=== PATIENT | female | born 1965 | race African-American/Black ===

== ENCOUNTER 2016-10-05 05:31 | Emergency (ER) | payer OTHER, MEDICAID ==
[~2016-10-05] VITALS: Ht 154.9 cm; Wt 72.6 kg
[~2016-10-05 05:31] MED LIST: ASPI81CH43 PO
[2016-10-05 06:01] LABS: Basophils # (auto) 0 uL; Eosinophils # (auto) 0.3 uL; Hematocrit 38.8 % (36.0-46.0); Lymphocytes # (auto) 1.7 uL; Lymphocytes % (auto) 43.9 % (10.0-50.0); Mean Corpuscular Hemoglobin 31.6 pg (28.0-32.0); Mean Corpuscular Hgb Conc. 33.6 g/dL (32.0-36.0); Mean Corpuscular Volume 93.9 fL (80.0-100.0); Mean Platelet Volume 8.5 fL (7.4-10.4); Monocytes # (auto) 0.2 uL; Monocytes % (auto) 5.8 % (0.0-12.0); Neutrophils # (auto) 1.5 uL; Neutrophils % (auto) 40.3 % (37.0-80.0); Platelet Count (auto) 328 10^3/uL (140-450); Red Cell Distribution Width 14.3 % (11.6-16.0); White Blood Cell 3.8 10^3/uL (4.4-10.8)
[2016-10-05 06:25] LABS: Albumin 3.7 g/dL (3.4-5.0); Alkaline Phosphatase 64 U/L (45-117); Anion Gap 11 (5-15); Aspartate Aminotransferase 19 U/L (15-37); Bilirubin, Total 0.4 mg/dL (0.2-1.0); Blood Urea Nitrogen 15 mg/dL (7-18); Calcium 9.1 mg/dL (8.5-10.1); Carbon Dioxide 26 mmol/L (21-32); Chloride 107 mmol/L (98-107); GFR African American 65 mL/min; GFR Non-African American 54 mL/min; Glucose 91 mg/dL (74-106); Potassium 4.2 mmol/L (3.5-5.1); Sodium 144 mmol/L (136-145); Total Protein 7.5 g/dL (6.4-8.2)
[2016-10-05] MEDS ORDERED: SODIUM CHLORIDE 0.9% 1,000 ML IV ONE (08:44)
[2016-10-05] MEDS ORDERED: METOCLOPRAMIDE HCL 5MG/ml INJ 2ml VIAL IV ONE (08:45)
[2016-10-05] MEDS ORDERED: NALBUPHINE HCL 10 MG/1ml INJECTION IV ONE (08:45)
[2016-10-05] MEDS ORDERED: METOCLOPRAMIDE HCL 5MG/ml INJ 2ml VIAL ONE (09:01)
[2016-10-05 09:05] LABS: Urine Bilirubin Negative (Negative); Urine Blood Negative /uL (Negative); Urine Color Yellow (Yellow); Urine Glucose Normal (Normal); Urine Ketone Negative (Negative); Urine Nitrite Negative (Negative); Urine RBC 2 /hpf (0 - 4); Urine Squamous Epithelial Cell FEW /hpf (<5); Urine Urobilinogen Normal (Negative)
[2016-10-05 10:25] VITALS: BP 148/74
== END 2016-10-05 12:05 | disposition home or self-care (01) ==
LOC: ER 05:37
DX: R07.89 Other chest pain (principal); I10 Essential (primary) hypertension; Z98.51 Tubal ligation status; Z98.890 Other specified postprocedural states; Z88.8 Allergy status to other drugs, medicaments and biological substances
CPT/HCPCS: 36415; 71020; 80053; 81001; 81025; 83735; 84484; 85025; 93005; 96361; 96374; 96375; 99285; J2300; J2765; J7030

== ENCOUNTER 2017-11-10 05:16 | Emergency (ER) | payer OTHER ==
[~2017-11-10] VITALS: Ht 154.9 cm; Wt 77.6 kg
[2017-11-10 06:25] LABS: Basophils # (auto) 0.1 uL; Basophils % (auto) 2.7 % (0.0-2.0); Eosinophils # (auto) 0.4 uL; Eosinophils % (auto) 10.5 % (0.0-7.0); Hematocrit 39.4 % (36.0-46.0); Hemoglobin 13.2 g/dL (12.2-16.2); Lymphocytes # (auto) 2.1 uL; Lymphocytes % (auto) 50.6 % (10.0-50.0); Mean Corpuscular Hemoglobin 31.5 pg (28.0-32.0); Mean Corpuscular Hgb Conc. 33.5 g/dL (32.0-36.0); Monocytes # (auto) 0.3 uL; Monocytes % (auto) 6.6 % (0.0-12.0); Neutrophils # (auto) 1.2 uL; Neutrophils % (auto) 29.6 % (37.0-80.0); Nucleated Red Blood Cells % 0.2 %; Platelet Count (auto) 307 10^3/uL (140-450); Red Blood Cells 4.19 10^6/uL (4.0-5.20); Red Cell Distribution Width 13.5 % (11.8-14.3); White Blood Cell 4.2 10^3/uL (4.4-10.8)
[2017-11-10 06:44] LABS: Alanine Aminotransferase 27 U/L (13-56); Albumin 3.7 g/dL (3.4-5.0); Anion Gap 8 (5-15); Aspartate Aminotransferase 19 U/L (15-37); BUN/Creatinine Ratio 12.8; Blood Urea Nitrogen 14 mg/dL (7-18); Calcium 9.2 mg/dL (8.5-10.1); Carbon Dioxide 27 mmol/L (21-32); Chloride 108 mmol/L (98-107); GFR African American 68 mL/min; GFR Non-African American 56 mL/min; Glucose 105 mg/dL (74-106); Magnesium 2.2 mg/dL (1.6-2.6); Potassium 4.8 mmol/L (3.5-5.1); Sodium 143 mmol/L (136-145)
[2017-11-10 06:48] LABS: Urine Bacteria FEW /hpf (None Seen); Urine Blood Negative /uL (Negative); Urine Mucus FEW (None Seen); Urine Specific Gravity 1.024 (1.001-1.035); Urine WBC 31 /hpf (0 - 5)
[2017-11-10 06:50] LABS: Alkaline Phosphatase 83 U/L (45-117); Bilirubin, Total 0.3 mg/dL (0.2-1.0); Total Protein 7.7 g/dL (6.4-8.2)
[2017-11-10] MEDS ORDERED: KETOROLAC TROMETH 60MG/2ML VIAL IM ONE (09:45)
[2017-11-10 10:21] VITALS: BP 128/82
== END 2017-11-10 10:24 | disposition home or self-care (01) ==
LOC: ER 05:18
DX: N39.0 Urinary tract infection, site not specified (principal); M79.1 Myalgia; I10 Essential (primary) hypertension; Z88.4 Allergy status to anesthetic agent; Z79.82 Long term (current) use of aspirin; Z83.3 Family history of diabetes mellitus
CPT/HCPCS: 36415; 71045; 80053; 81001; 83735; 84443; 84484; 85025; 93005; 96372; 99285; J1885

== ENCOUNTER 2018-09-09 04:08 | Emergency (ER) | payer OTHER, MEDICAID ==
[~2018-09-09] VITALS: Ht 154.9 cm; Wt 77.1 kg
[2018-09-09 05:31] LABS: Urine Bacteria NONE SEEN /hpf (None Seen); Urine Blood Negative /uL (Negative); Urine WBC 29 /hpf (0 - 5)
[2018-09-09 06:03] LABS: Basophils # (auto) 0.1 uL; Basophils % (auto) 1.3 % (0.0-2.0); Eosinophils # (auto) 0.4 uL; Eosinophils % (auto) 7.4 % (0.0-7.0); Hematocrit 38.9 % (36.0-46.0); Hemoglobin 12.9 g/dL (12.2-16.2); Lymphocytes # (auto) 2.2 uL; Lymphocytes % (auto) 47.3 % (10.0-50.0); Mean Corpuscular Hemoglobin 31.2 pg (28.0-32.0); Mean Corpuscular Hgb Conc. 33.3 g/dL (32.0-36.0); Mean Corpuscular Volume 93.8 fL (80.0-100.0); Monocytes # (auto) 0.3 uL; Neutrophils # (auto) 1.7 uL; Nucleated Red Blood Cells % 0.1 %; Platelet Count (auto) 311 10^3/uL (140-450); Red Blood Cells 4.14 10^6/uL (4.0-5.20); Red Cell Distribution Width 13.7 % (11.8-14.3); White Blood Cell 4.7 10^3/uL (4.4-10.8)
[2018-09-09 06:18] VITALS: BP 144/78
[2018-09-09 06:20] LABS: Chloride 112 mmol/L (98-107); Potassium 4.3 mmol/L (3.5-5.1); Sodium 141 mmol/L (136-145)
[2018-09-09 06:33] LABS: Alanine Aminotransferase 26 U/L (13-56); Albumin 3.6 g/dL (3.4-5.0); Alkaline Phosphatase 78 U/L (45-117); Amylase 151 U/L (25-115); Anion Gap 5 (5-15); Aspartate Aminotransferase 16 U/L (15-37); BUN/Creatinine Ratio 15.6; Bilirubin, Total 0.3 mg/dL (0.2-1.0); Blood Urea Nitrogen 15 mg/dL (7-18); Carbon Dioxide 24 mmol/L (21-32); GFR African American 79 mL/min; GFR Non-African American 65 mL/min; Glucose 99 mg/dL (74-106); Lipase 74 U/L (73-393); Magnesium 2.3 mg/dL (1.6-2.6); Total Protein 7.6 g/dL (6.4-8.2)
== END 2018-09-09 07:47 | disposition home or self-care (01) ==
LOC: ER 04:08
DX: N39.0 Urinary tract infection, site not specified (principal); R51 Headache; I10 Essential (primary) hypertension; Z88.6 Allergy status to analgesic agent; Z79.82 Long term (current) use of aspirin; Z98.51 Tubal ligation status
CPT/HCPCS: 36415; 71046; 74176; 80053; 81001; 82150; 83690; 83735; 84443; 84484; 85025; 93005

== ENCOUNTER 2019-03-29 07:49 | Inpatient (IN) | payer MEDICAID, OTHER ==
[~2019-03-29] VITALS: Ht 154.9 cm; Wt 85.0 kg
[2019-03-29 09:12] LABS: Basophils # (auto) 0.1 uL; Basophils % (auto) 1.5 % (0.0-2.0); Eosinophils # (auto) 0.3 uL; Eosinophils % (auto) 7.8 % (0.0-7.0); Hematocrit 41.4 % (36.0-46.0); Lymphocytes # (auto) 1.8 uL; Lymphocytes % (auto) 45.8 % (10.0-50.0); Mean Corpuscular Hemoglobin 31.7 pg (28.0-32.0); Mean Corpuscular Hgb Conc. 33.8 g/dL (32.0-36.0); Mean Corpuscular Volume 93.9 fL (80.0-100.0); Monocytes # (auto) 0.2 uL; Monocytes % (auto) 6.2 % (0.0-12.0); Neutrophils # (auto) 1.5 uL; Neutrophils % (auto) 38.7 % (37.0-80.0); Nucleated Red Blood Cells % 0.2 %; Platelet Count (auto) 303 10^3/uL (140-450); Red Blood Cells 4.41 10^6/uL (4.0-5.20); Red Cell Distribution Width 13.6 % (11.8-14.3); White Blood Cell 3.9 10^3/uL (4.4-10.8)
[2019-03-29 09:20] LABS: Urine Bacteria NONE SEEN /hpf (None Seen); Urine Blood Negative /uL (Negative); Urine WBC 1 /hpf (0 - 5)
[2019-03-29 09:31] LABS: Albumin 3.8 g/dL (3.4-5.0); Anion Gap 6 (5-15); Calcium 9.3 mg/dL (8.5-10.1); Carbon Dioxide 27 mmol/L (21-32); Chloride 106 mmol/L (98-107); Glucose 87 mg/dL (74-106); Potassium 4.1 mmol/L (3.5-5.1); Sodium 139 mmol/L (136-145)
[2019-03-29 09:40] LABS: Alanine Aminotransferase 40 U/L (13-56); Alkaline Phosphatase 78 U/L (45-117); Aspartate Aminotransferase 24 U/L (15-37); BUN/Creatinine Ratio 13.9; Bilirubin, Total 0.5 mg/dL (0.2-1.0); Blood Urea Nitrogen 15 mg/dL (7-18); GFR African American 69 mL/min; GFR Non-African American 57 mL/min; Total Protein 7.9 g/dL (6.4-8.2)
[2019-03-29] MEDS ORDERED: NITROGLYCERIN 0.4 MG SL TAB SL PRN ×2 (12:30)
[2019-03-29] MEDS ORDERED: ONDANSETRON HCL 4 MG/2 ML VIAL IV PRN (12:30)
[2019-03-29] MEDS ORDERED: ZOLPIDEM TARTRATE 5 MG TAB PO PRN (12:30)
[2019-03-29] MEDS ORDERED: LORazepam 0.5 MG TAB PO PRN (12:30)
[2019-03-29] MEDS ORDERED: KETOROLAC TROMETH 30 MG/ML 1ML VIAL IV PRN (12:30)
[2019-03-29] MEDS ORDERED: CLOPIDOGREL 300 MG TAB PO ONE (12:30)
[2019-03-29] MEDS ORDERED: ALUM & MAG HYDROX-SIMETH LIQ(MAALOX) 30 ML PO PRN (12:30)
[2019-03-29] MEDS ORDERED: MORPHINE SULF INJ 2 MG/ML SYRINGE 1ML IV PRN (12:30)
[2019-03-29] MEDS ORDERED: MORPHINE SULFATE 4 MG/ML SYR/VIAL IV PRN (12:30)
[2019-03-29] MEDS ORDERED: IOHEXOL 350 MG/ML 100ML IJ ONE (13:14)
--- NOTE | 2019-03-29 14:20 | NUR ---
Telemetry admit from ER GERONIMO MCWILLIAMS admitted to Telemetry unit after SBAR received. Patient oriented to Felicity crump RN, unit, room, bed, and unit policies regarding patient care and visiting hours. Patient now on continuous telemetry monitoring, tele box #[id number] and telemetry reading on arrival to unit is SB 40's. Patient weighed by bed scale and encouraged to call if they need something. All questions and concerns addressed, patient verbalized understanding. Instructed patient on POC, fall precautions and to call for assistance as needed. patient verbalized understanding. Fall precautions in place with bed in lowest locked position, x2 side rails up and call light within reach. Will continue to monitor q1hr & PRN.
--- NOTE | 2019-03-29 14:33 | NUR ---
HR SB 38 bpm noted on telemetry Patient is asymptomatic. Patient stated "yeah, I've been told before that my heart rate goes low. Then it comes back up. I feel fine right now." Patient sitting in bed with even and unlabored respirations, no distress noted. Patient denies SOB and/or CP. Call light within reach. Dr. Armstrong aware of bradycardia.
--- NOTE | 2019-03-29 15:02 | NUR ---
Spoke with surplus property disposal agent - Dr. Armstrong RE: bradycardia MD aware of bradycardia. Patient is asymptomatic. Ordered to continue to monitor and notify MD if patient becomes symptomatic and/or HR sustains in the 30's for 5-10 minutes. Orders received and read back to verify.
--- NOTE | 2019-03-29 15:11 | NUR ---
cytogenetics technologist at bedside
[2019-03-29] MEDS ORDERED: AML5T PO (15:23)
[2019-03-29] MEDS ORDERED: LOSA-39 PO (15:23)
[2019-03-29] MEDS ORDERED: HYDR12.56 PO (15:23)
[2019-03-29] MEDS ORDERED: hydrALAZINE HCL 25 MG TAB PO PRN (16:15)
[2019-03-29 16:54] VITALS: BP 163/94
--- NOTE | 2019-03-29 19:10 | NUR ---
Closing note - care endorsed to KESHAWN Otero Patient resting in bed with eyes closed, respirations even and unlabored, no distress noted. Fall precautions in place with call light within reach. Further care endorsed to KESHAWN Otero.
--- NOTE | 2019-03-29 19:45 | NUR ---
OPENING NOTE REPORT RECEIVED FROM DAY SHIFT RN. PATIENT IS SLEEPING AT THIS TIME. NO S/S OF DISTRESS NOTED. WILL COME BACK AT LATER TIME TO DO ASSESSMENT. ALL PERSONAL BELONGINGS WITHIN REACH. CALL LIGHT WITHIN REACH.
[2019-03-29 22:00] VITALS: BP 132/72
[2019-03-30 05:37] VITALS: BP 144/71
[2019-03-30 05:49] LABS: Basophils # (auto) 0.1 uL; Basophils % (auto) 1.2 % (0.0-2.0); Eosinophils # (auto) 0.4 uL; Eosinophils % (auto) 8.6 % (0.0-7.0); Hematocrit 41.7 % (36.0-46.0); Lymphocytes # (auto) 1.9 uL; Lymphocytes % (auto) 44.6 % (10.0-50.0); Mean Corpuscular Hemoglobin 31.5 pg (28.0-32.0); Mean Corpuscular Hgb Conc. 33.6 g/dL (32.0-36.0); Mean Corpuscular Volume 93.7 fL (80.0-100.0); Monocytes # (auto) 0.3 uL; Monocytes % (auto) 6.4 % (0.0-12.0); Neutrophils # (auto) 1.7 uL; Neutrophils % (auto) 39.2 % (37.0-80.0); Platelet Count (auto) 295 10^3/uL (140-450); Red Blood Cells 4.44 10^6/uL (4.0-5.20); Red Cell Distribution Width 13.3 % (11.8-14.3); White Blood Cell 4.3 10^3/uL (4.4-10.8)
[2019-03-30 06:11] LABS: Albumin 3.7 g/dL (3.4-5.0); BUN/Creatinine Ratio 16.1; Calcium 9.3 mg/dL (8.5-10.1); Cholesterol 257 mg/dL (< 200); Magnesium 2.2 mg/dL (1.6-2.6); Triglycerides 112 mg/dL (< 150)
[2019-03-30 06:13] LABS: HDL Cholesterol 68 mg/dL (40-59); LDL Cholesterol 174 mg/dL (< 100)
[2019-03-30 06:14] LABS: Bilirubin, Total 0.5 mg/dL (0.2-1.0); Total Protein 7.9 g/dL (6.4-8.2)
[2019-03-30 06:22] LABS: Phosphorus 4.1 mg/dL (2.5-4.90)
[2019-03-30 06:34] LABS: INR 0.93 (0.9-1.15); Partial Thromboplastin Time 26.5 sec (23.64-32.05)
--- NOTE | 2019-03-30 06:44 | NUR ---
CLOSING PATIENT IS AWAKE, WATCHING TV IN BED. NO S/S OF DISTRESS. PATIENT BATOOL ON MONITOR THROUGHOUT NIGHT IS LOW 40'S, ASYMPTOMATIC. PATIENT HEART RATES GOES INTO THE 70'S WHILE AWAKE AND MOVING. NO INCIDENTS DURING NIGHT. CALL LIGHT WITHIN REACH. WILL ENDORSE CARE TO AM SHIFT RN.
--- NOTE | 2019-03-30 07:34 | NUR ---
Opening Shift Note Assumed care of patient, awake and alert. No S/S of distress/SOB. PT denies having any pain at this time. Bed in lowest and locked position with side rails up x2 and call light in reach. Instructed on POC and to call for assist PRN, will continue to monitor for changes Q1hr and PRN.
[2019-03-30 09:00] VITALS: BP 134/82
[2019-03-30] MEDS ORDERED: ASPirin 81 mg TAB PO SCH (10:00)
[2019-03-30] MEDS ORDERED: amLODIPine BESYLATE 5 MG TAB PO SCH (10:00)
[2019-03-30] MEDS ORDERED: DOCUSATE SOD 100 MG CAP PO SCH (10:00)
[2019-03-30 13:00] VITALS: BP 136/89
[2019-03-30 16:16] VITALS: BP 136/89
[2019-03-30 17:00] VITALS: BP 132/83
--- NOTE | 2019-03-30 18:00 | NUR ---
Discharge instructions given as ordered. Encourage to follow up with PMD as instructed. All questions and concerns addressed. Patient verbalized understanding. Medication reconciliation form completed and copy given to patient. No Home medications held in Pharmacy. No needed vaccines. IV removed with catheter intact, pressure dressing applied. Telemetry unit returned to ICU.
--- NOTE | 2019-03-30 18:23 | NUR ---
Patient taken to vehicle via wheelchair with all personal belongings, accompanied by staff. No distress noted at time of departure.
== END 2019-03-30 18:50 | disposition home or self-care (01) | DRG 201 ==
LOC: ER 07:49 → TELE-WESTW 07:50
PROVIDERS: ADMIT Hospitalist; ATTEND Hospitalist
DX: R00.1 Bradycardia, unspecified (principal); E66.9 Obesity, unspecified; I16.0 Hypertensive urgency; E78.5 Hyperlipidemia, unspecified; I10 Essential (primary) hypertension; I45.9 Conduction disorder, unspecified; R73.03 Prediabetes; Z79.899 Other long term (current) drug therapy; Z82.49 Family history of ischemic heart disease and other diseases of the circulatory system; Z91.14 Patient's other noncompliance with medication regimen; Z83.3 Family history of diabetes mellitus; Z98.51 Tubal ligation status
CPT/HCPCS: 36415; 71046; 71275; 80053; 80061; 81001; 83036; 83735; 84100; 84484; 85025; 85610; 85730; 93005; 93306; G0378

== ENCOUNTER 2019-12-27 05:25 | Emergency (ER) | payer MEDICAID, OTHER ==
[~2019-12-27] VITALS: Ht 154.9 cm; Wt 81.6 kg
[~2019-12-27 05:25] MED LIST changes: +HYDR12.56 PO; +LOSA-39 PO
[2019-12-27 08:31] VITALS: BP 151/74
== END 2019-12-27 09:41 | disposition home or self-care (01) ==
LOC: ER 05:25
DX: J40 Bronchitis, not specified as acute or chronic (principal); R05 Cough; I10 Essential (primary) hypertension; Z98.51 Tubal ligation status
CPT/HCPCS: 71045

== ENCOUNTER 2021-01-21 09:51 | Emergency (ER) | payer MEDICAID ==
[~2021-01-21] VITALS: Ht 154.9 cm; Wt 77.1 kg
[2021-01-21] MEDS ORDERED: cefTRIAXone 1GM/50ML D5W 50 ML IV ONE (11:15)
[2021-01-21] MEDS ORDERED: DexAMETHasone SOD PHOS 10MG/1ML VIAL INJ IV ONE (11:15)
[2021-01-21] MEDS ORDERED: ACETAMINOPHEN 500 MG TAB PO ONE (11:15)
[2021-01-21] MEDS ORDERED: SODIUM CHLORIDE 0.9% 1,000 ML IV ONE (11:15)
[2021-01-21 11:52] VITALS: BP 104/75
[2021-01-21 12:01] LABS: Basophils # (auto) 0 10 ^3/uL (0-0.2); Basophils % (auto) 0.3 % (0.0-2.0); Eosinophils # (auto) 0 10 ^3/uL (0-0.8); Hematocrit 39.9 % (36.0-46.0); Hemoglobin 14.1 g/dL (12.2-16.2); Lymphocytes % (auto) 32.2 % (10.0-50.0); Mean Corpuscular Hemoglobin 31.9 pg (28.0-32.0); Mean Corpuscular Hgb Conc. 35.2 g/dL (32.0-36.0); Mean Corpuscular Volume 90.6 fL (80.0-100.0); Monocytes # (auto) 0.1 10 ^3/uL (0-1.3); Monocytes % (auto) 4.1 % (0.0-12.0); Neutrophils % (auto) 63.4 % (37.0-80.0); Nucleated Red Blood Cells % 0.4 %; Red Blood Cells 4.41 10^6/uL (4.0-5.20); Red Cell Distribution Width 13.6 % (11.8-14.3); White Blood Cell 3.1 10^3/uL (4.4-10.8)
[2021-01-21 12:12] LABS: BUN/Creatinine Ratio 8.2; Calcium 8.5 mg/dL (8.5-10.1); Potassium 3.7 mmol/L (3.5-5.1)
== END 2021-01-21 13:37 | disposition home or self-care (01) ==
LOC: ER 09:51
DX: U07.1 COVID-19 (principal); J20.8 Acute bronchitis due to other specified organisms; J03.00 Acute streptococcal tonsillitis, unspecified; I10 Essential (primary) hypertension
CPT/HCPCS: 36415; 71045; 80048; 85025; 87880; 93005; 96365; 96375; 99285; J0696; J1100; J7030

== ENCOUNTER 2022-11-15 04:30 | Inpatient (IN) | payer MEDICAID ==
[2022-11-15] VITALS (15 sets, daily range): BP systolic 104–183; BP diastolic 67–101
[~2022-11-15] VITALS: Ht 154.9 cm; Wt 81.0 kg
[~2022-11-15 04:30] MED LIST changes: -HYDR12.56 PO; +HYDR12.59 PO; -LOSA-39 PO; +LOSA100T58 PO
[2022-11-15 05:37] LABS: Calcium 8.9 mg/dL (8.5-10.1); INR 0.92 (0.9-1.15); Magnesium 2.3 mg/dL (1.6-2.6); Partial Thromboplastin Time 26.6 sec (24.6-33.4); Potassium 4.4 mmol/L (3.5-5.1)
[2022-11-15 05:40] LABS: BUN/Creatinine Ratio 19.3 (10.0-20.0); Bilirubin, Total 0.5 mg/dL (0.2-1.0); Total Protein 7.6 g/dL (6.4-8.2)
[2022-11-15 05:48] LABS: Basophils # (auto) 0.1 10 ^3/uL (0-0.2); Eosinophils # (auto) 0.4 10 ^3/uL (0-0.8); Eosinophils % (auto) 8.3 % (0.0-7.0); Hematocrit 40.4 % (36.0-46.0); Hemoglobin 13.7 g/dL (12.2-16.2); Lymphocytes % (auto) 46.3 % (10.0-50.0); Mean Corpuscular Hemoglobin 31.5 pg (28.0-32.0); Mean Corpuscular Volume 92.5 fL (80.0-100.0); Monocytes # (auto) 0.3 10 ^3/uL (0-1.3); Monocytes % (auto) 7.2 % (0.0-12.0); Neutrophils # (auto) 1.6 10 ^3/uL (1.6-8.6); Neutrophils % (auto) 36.2 % (37.0-80.0); Nucleated Red Blood Cells % 0.2 %; Red Blood Cells 4.36 10^6/uL (4.0-5.20); Red Cell Distribution Width 13.7 % (11.8-14.3); White Blood Cell 4.4 10^3/uL (4.4-10.8)
[2022-11-15 08:02] LABS: Urine Bacteria NONE SEEN /hpf (None Seen); Urine Blood Negative /uL (Negative); Urine WBC 2 /hpf (0 - 5)
[2022-11-15] MEDS ORDERED: DOPamine 1600MCG/ML D5W 250 ML IV ONE (08:30)
[2022-11-15] MEDS ORDERED: HYDROcodone-ACET 5/325MG TAB PO PRN ×2 (09:30→20:30)
[2022-11-15] MEDS ORDERED: NITROGLYCERIN 0.4 MG SL TAB SL PRN ×2 (09:30→20:30)
[2022-11-15] MEDS ORDERED: ONDANSETRON HCL 4 MG/2 ML VIAL IV PRN (09:30)
[2022-11-15] MEDS ORDERED: ACETAMINOPHEN 500 MG TAB PO PRN (09:30)
[2022-11-15] MEDS ORDERED: hydrALAZINE HCL 20 MG/ML VL IV PRN (09:30)
[2022-11-15] MEDS ORDERED: MORPHINE SULFATE INJ 2 MG/ml SYRG IV PRN ×2 (09:30→20:30)
[2022-11-15] MEDS: SODIUM CHLORIDE 0.9% 1,000 ML IV SCH ×2 (10:25→21:02)
[2022-11-15] MEDS ORDERED: ISOPROTERENOL HCL INJECTION 1 MG in D5W 5% 250 ML IV SCH (10:30)
[2022-11-15 11:50] LABS: Cholesterol 244 mg/dL (< 200)
[2022-11-15 11:53] LABS: HDL Cholesterol 67 mg/dL (40-59); LDL Cholesterol 153 mg/dL (< 100); Triglycerides 88 mg/dL (< 150)
[2022-11-15] MEDS ORDERED: VANCOMYCIN 1GM/250ML 250 ML IV ONE (16:30)
[2022-11-15] MEDS ORDERED: fentaNYL CITRATE 100 MCG/2 ML VL ONE ×2 (18:17→19:17)
[2022-11-15] MEDS ORDERED: MIDAZOLAM HCL 2MG/2ML 2ml VIAL (1mg/ml) ONE ×2 (18:18→19:17)
[2022-11-15] MEDS ORDERED: LIDOCAINE 2%HCL (LOCAL ANESTH.) INJ 20ML MDV ONE (18:18)
[2022-11-15] MEDS ORDERED: VANCOMYCIN HCL 1000 MG VL ONE ×2 (18:30→18:31)
[2022-11-15] MEDS ORDERED: IODIXANOL 320MG/ML 100ML BTL IV ONE (18:36)
[2022-11-15] MEDS ORDERED: ONDANSETRON HCL 4 MG/2 ML VIAL ONE (18:40)
[2022-11-15] MEDS ORDERED: ACETAMINOPHEN 325 MG TAB PO PRN (20:30)
[2022-11-15] MEDS: ceFAZolin 1GM/50ML 50 ML IV SCH (21:02)
[2022-11-15] MEDS ORDERED: LORazepam 0.5 MG TAB PO PRN (22:00)
[2022-11-15] MEDS ORDERED: VANCOMYCIN 1GM/250ML 250 ML IV SCH (22:00)
[2022-11-15] MEDS: MORPHINE SULFATE INJ 2 MG/ml SYRG IV PRN (23:29)
[2022-11-16] VITALS (36 sets, daily range): BP systolic 99–167; BP diastolic 58–105
[2022-11-16 04:12] LABS: Basophils # (auto) 0 10 ^3/uL (0-0.2); Basophils % (auto) 0.4 % (0.0-2.0); Eosinophils # (auto) 0.1 10 ^3/uL (0-0.8); Hematocrit 38.9 % (36.0-46.0); Lymphocytes # (auto) 1.1 10 ^3/uL (0.4-5.4); Lymphocytes % (auto) 15.4 % (10.0-50.0); Mean Corpuscular Hemoglobin 31.3 pg (28.0-32.0); Mean Corpuscular Hgb Conc. 33.5 g/dL (32.0-36.0); Mean Corpuscular Volume 93.4 fL (80.0-100.0); Monocytes # (auto) 0.5 10 ^3/uL (0-1.3); Monocytes % (auto) 6.7 % (0.0-12.0); Neutrophils # (auto) 5.5 10 ^3/uL (1.6-8.6); Neutrophils % (auto) 76.5 % (37.0-80.0); Nucleated Red Blood Cells % 0.1 %; Red Blood Cells 4.16 10^6/uL (4.0-5.20); Red Cell Distribution Width 13.6 % (11.8-14.3); White Blood Cell 7.2 10^3/uL (4.4-10.8)
[2022-11-16 04:17] LABS: BUN/Creatinine Ratio 18.9 (10.0-20.0); Calcium 8.8 mg/dL (8.5-10.1); Potassium 4.5 mmol/L (3.5-5.1)
[2022-11-16] MEDS: MORPHINE SULFATE INJ 2 MG/ml SYRG IV PRN (05:03)
[2022-11-16] MEDS: ceFAZolin 1GM/50ML 50 ML IV SCH (05:34)
[2022-11-16] MEDS: SODIUM CHLORIDE 0.9% 1,000 ML IV SCH (05:40)
[2022-11-16] MEDS ORDERED: VANCOMYCIN 1GM/250ML 250 ML IV SCH (07:00)
[2022-11-16] MEDS ORDERED: HYDR-4902 PO (08:44)
[2022-11-16] MEDS ORDERED: DOXY-448 PO (08:44)
[2022-11-16] MEDS ORDERED: ONDANSETRON HCL 4 MG/2 ML VIAL IV PRN ×2 (08:45→09:00)
[2022-11-16] MEDS ORDERED: ACETAMINOPHEN 500 MG TAB PO PRN (08:45)
[2022-11-16] MEDS ORDERED: HYDROcodone-ACET 5/325MG TAB PO PRN (08:45)
[2022-11-16] MEDS ORDERED: MORPHINE SULFATE INJ 2 MG/ml SYRG IV PRN (08:45)
== END 2022-11-16 14:59 | disposition home or self-care (01) | DRG 171 ==
LOC: ER 04:30 → TELE 09:23 → DOU IN ICU 12:10 → ICU WEST 14:50
PROVIDERS: ADMIT Nurse Practitioner Acute Care; ATTEND Nurse Practitioner Acute Care
PROC: 0JH606Z Insertion of Pacemaker, Dual Chamber into Chest Subcutaneous Tissue and Fascia, Open Approach (ICD-10-PCS; principal; 2022-11-15)
PROC: 02H63JZ Insertion of Pacemaker Lead into Right Atrium, Percutaneous Approach (ICD-10-PCS; 2022-11-15)
PROC: 02HK3JZ Insertion of Pacemaker Lead into Right Ventricle, Percutaneous Approach (ICD-10-PCS; 2022-11-15)
DX: I44.2 Atrioventricular block, complete (principal); E66.9 Obesity, unspecified; G89.29 Other chronic pain; M54.50 Low back pain, unspecified; R11.2 Nausea with vomiting, unspecified; I10 Essential (primary) hypertension; Z79.82 Long term (current) use of aspirin; Z82.49 Family history of ischemic heart disease and other diseases of the circulatory system; Z83.3 Family history of diabetes mellitus; Z98.51 Tubal ligation status; Z68.33 Body mass index [BMI] 33.0-33.9, adult
CPT/HCPCS: 33208; 36415; 70450; 71045; 80048; 80053; 80061; 81001; 83036; 83735; 83880; 84443; 84484; 85025; 85610; 85730; 86850; 86900; 86901; 87081; 93005; 93306; 96365; 96366; 96367; 96375; 99152; 99153; 99291; G0378; J0690; J2250; J2405; J7060; Q9967

== ENCOUNTER 2022-11-20 05:55 | Inpatient (IN) | payer MEDICAID ==
[~2022-11-20] VITALS: Ht 157.5 cm; Wt 85.6 kg
[2022-11-20] MEDS: DOXYCYCLINE 100 MG TAB/CAP PO SCH ×2 (03:39→18:03)
[~2022-11-20 05:55] MED LIST changes: +DOXY-448 PO; +HYDR-4902 PO
[2022-11-20 07:14] LABS: Basophils # (auto) 0 10 ^3/uL (0-0.2); Basophils % (auto) 1.1 % (0.0-2.0); Eosinophils # (auto) 0.2 10 ^3/uL (0-0.8); Eosinophils % (auto) 5.5 % (0.0-7.0); Hematocrit 40.1 % (36.0-46.0); Hemoglobin 13.4 g/dL (12.2-16.2); Lymphocytes % (auto) 45.3 % (10.0-50.0); Mean Corpuscular Hemoglobin 30.9 pg (28.0-32.0); Mean Corpuscular Hgb Conc. 33.4 g/dL (32.0-36.0); Mean Corpuscular Volume 92.5 fL (80.0-100.0); Monocytes # (auto) 0.3 10 ^3/uL (0-1.3); Monocytes % (auto) 6.9 % (0.0-12.0); Neutrophils # (auto) 1.9 10 ^3/uL (1.6-8.6); Neutrophils % (auto) 41.2 % (37.0-80.0); Nucleated Red Blood Cells % 0.3 %; Red Blood Cells 4.34 10^6/uL (4.0-5.20); Red Cell Distribution Width 13.5 % (11.8-14.3); White Blood Cell 4.5 10^3/uL (4.4-10.8)
[2022-11-20 07:25] LABS: INR 0.96 (0.9-1.15); Partial Thromboplastin Time 26.7 sec (24.6-33.4)
[2022-11-20 08:01] LABS: Albumin 3.6 g/dL (3.4-5.0); Calcium 9.1 mg/dL (8.5-10.1); Magnesium 2.4 mg/dL (1.6-2.6); Potassium 4.4 mmol/L (3.5-5.1)
[2022-11-20 08:08] LABS: BUN/Creatinine Ratio 18.1 (10.0-20.0); Bilirubin, Total 0.5 mg/dL (0.2-1.0); Total Protein 6.7 g/dL (6.4-8.2)
[2022-11-20] MEDS ORDERED: ONDANSETRON HCL 4 MG/2 ML VIAL IV PRN (12:45)
[2022-11-20] MEDS ORDERED: MORPHINE SULFATE INJ 2 MG/ml SYRG IV PRN ×2 (12:45)
[2022-11-20] MEDS ORDERED: ACETAMINOPHEN 325 MG TAB PO PRN (12:45)
[2022-11-20] MEDS ORDERED: NITROGLYCERIN 0.4 MG SL TAB SL PRN (12:45)
[2022-11-20] MEDS ORDERED: DOXYCYCLINE 100 MG PO SCH (13:30)
[2022-11-20] MEDS: HYDROcodone-ACET 5/325MG TAB PO PRN (18:06)
[2022-11-21] MEDS ORDERED: DOXYCYCLINE 100 MG/250 ML IV ONE (03:41)
[2022-11-21] MEDS: DOXYCYCLINE 100 MG TAB/CAP PO SCH ×3 (03:49→21:06)
[2022-11-21] MEDS: HYDROcodone-ACET 5/325MG TAB PO PRN ×3 (04:03→21:08)
[2022-11-21 05:22] LABS: Basophils # (auto) 0.1 10 ^3/uL (0-0.2); Basophils % (auto) 1.2 % (0.0-2.0); Eosinophils # (auto) 0.3 10 ^3/uL (0-0.8); Eosinophils % (auto) 5.2 % (0.0-7.0); Hematocrit 39.7 % (36.0-46.0); Hemoglobin 13.3 g/dL (12.2-16.2); Lymphocytes # (auto) 2.5 10 ^3/uL (0.4-5.4); Lymphocytes % (auto) 47.3 % (10.0-50.0); Mean Corpuscular Hemoglobin 31.3 pg (28.0-32.0); Mean Corpuscular Hgb Conc. 33.4 g/dL (32.0-36.0); Mean Corpuscular Volume 93.6 fL (80.0-100.0); Monocytes # (auto) 0.4 10 ^3/uL (0-1.3); Neutrophils # (auto) 2.1 10 ^3/uL (1.6-8.6); Neutrophils % (auto) 39.3 % (37.0-80.0); Nucleated Red Blood Cells % 0.1 %; Red Blood Cells 4.25 10^6/uL (4.0-5.20); Red Cell Distribution Width 13.8 % (11.8-14.3); White Blood Cell 5.3 10^3/uL (4.4-10.8)
[2022-11-21 05:29] LABS: BUN/Creatinine Ratio 23.6 (10.0-20.0); Calcium 9.2 mg/dL (8.5-10.1); Potassium 4.4 mmol/L (3.5-5.1)
[2022-11-21] MEDS: ASPirin 81 mg TAB PO SCH (12:25)
[2022-11-21] MEDS: HCTZ 25 MG TAB PO SCH (12:26)
[2022-11-21] MEDS: LOSARTAN POTASSIUM 50 MG TAB PO SCH (12:27)
[2022-11-21 17:00] VITALS: BP 148/55
[2022-11-21 22:00] VITALS: BP 115/73
[2022-11-22] MEDS: HYDROcodone-ACET 5/325MG TAB PO PRN ×2 (02:08→16:58)
[2022-11-22 05:00] VITALS: BP 107/78
[2022-11-22 05:39] LABS: Basophils # (auto) 0.1 10 ^3/uL (0-0.2); Basophils % (auto) 1.2 % (0.0-2.0); Eosinophils # (auto) 0.4 10 ^3/uL (0-0.8); Eosinophils % (auto) 6.1 % (0.0-7.0); Hemoglobin 12.7 g/dL (12.2-16.2); Lymphocytes % (auto) 52.7 % (10.0-50.0); Mean Corpuscular Hemoglobin 31.1 pg (28.0-32.0); Mean Corpuscular Hgb Conc. 33.4 g/dL (32.0-36.0); Mean Corpuscular Volume 93.3 fL (80.0-100.0); Monocytes # (auto) 0.3 10 ^3/uL (0-1.3); Monocytes % (auto) 5.8 % (0.0-12.0); Neutrophils % (auto) 34.2 % (37.0-80.0); Red Blood Cells 4.07 10^6/uL (4.0-5.20); Red Cell Distribution Width 13.7 % (11.8-14.3); White Blood Cell 5.7 10^3/uL (4.4-10.8)
[2022-11-22 05:59] LABS: BUN/Creatinine Ratio 22.3 (10.0-20.0); Calcium 8.9 mg/dL (8.5-10.1); Potassium 4.2 mmol/L (3.5-5.1)
[2022-11-22] MEDS: ASPirin 81 mg TAB PO SCH (09:07)
[2022-11-22] MEDS: DOXYCYCLINE 100 MG TAB/CAP PO SCH (09:08)
[2022-11-22] MEDS: LOSARTAN POTASSIUM 50 MG TAB PO SCH (09:09)
[2022-11-22] MEDS: HCTZ 25 MG TAB PO SCH (09:09)
[2022-11-22 13:05] VITALS: BP 125/76
[2022-11-22 17:06] VITALS: BP 123/63
[2022-11-22 22:00] VITALS: BP 98/64
[2022-11-23] VITALS (10 sets, daily range): BP systolic 109–157; BP diastolic 57–94
[2022-11-23] MEDS: HYDROcodone-ACET 5/325MG TAB PO PRN ×2 (01:12→09:17)
[2022-11-23] MEDS: DOXYCYCLINE 100 MG TAB/CAP PO SCH ×3 (01:16→20:57)
[2022-11-23] MEDS: LOSARTAN POTASSIUM 50 MG TAB PO SCH (09:13)
[2022-11-23] MEDS: ASPirin 81 mg TAB PO SCH (09:14)
[2022-11-23] MEDS: HCTZ 25 MG TAB PO SCH (09:15)
[2022-11-23] MEDS ORDERED: VANCOMYCIN HCL 1000 MG VL ONE (14:06)
[2022-11-23] MEDS ORDERED: MIDAZOLAM HCL 2MG/2ML 2ml VIAL (1mg/ml) ONE (14:06)
[2022-11-23] MEDS ORDERED: fentaNYL CITRATE 100 MCG/2 ML VL ONE ×2 (14:06→15:42)
[2022-11-23] MEDS ORDERED: VANCOMYCIN 1GM/250ML 250 ML IV ONE (14:07)
[2022-11-23] MEDS ORDERED: LIDOCAINE 2%HCL (LOCAL ANESTH.) INJ 20ML MDV ONE ×2 (15:01→15:43)
[2022-11-23] MEDS: HYDROcodone-ACET 10/325MG TAB PO PRN ×2 (17:22→23:46)
[2022-11-24] MEDS: HYDROcodone-ACET 10/325MG TAB PO PRN ×3 (04:56→18:28)
[2022-11-24 05:00] VITALS: BP 115/69
[2022-11-24 05:41] LABS: Basophils # (auto) 0 10 ^3/uL (0-0.2); Basophils % (auto) 0.7 % (0.0-2.0); Eosinophils # (auto) 0.2 10 ^3/uL (0-0.8); Hematocrit 39.2 % (36.0-46.0); Hemoglobin 13.1 g/dL (12.2-16.2); Lymphocytes # (auto) 1.8 10 ^3/uL (0.4-5.4); Lymphocytes % (auto) 29.3 % (10.0-50.0); Mean Corpuscular Hemoglobin 31.5 pg (28.0-32.0); Mean Corpuscular Hgb Conc. 33.5 g/dL (32.0-36.0); Mean Corpuscular Volume 94.2 fL (80.0-100.0); Monocytes # (auto) 0.3 10 ^3/uL (0-1.3); Neutrophils # (auto) 3.8 10 ^3/uL (1.6-8.6); Nucleated Red Blood Cells % 0.1 %; Red Blood Cells 4.16 10^6/uL (4.0-5.20); Red Cell Distribution Width 13.5 % (11.8-14.3); White Blood Cell 6.1 10^3/uL (4.4-10.8)
[2022-11-24 06:00] LABS: BUN/Creatinine Ratio 23.4 (10.0-20.0); Calcium 9.2 mg/dL (8.5-10.1); Potassium 4.6 mmol/L (3.5-5.1)
[2022-11-24 09:00] VITALS: BP 111/77
[2022-11-24] MEDS: HCTZ 25 MG TAB PO SCH (10:00)
[2022-11-24] MEDS: ASPirin 81 mg TAB PO SCH (10:04)
[2022-11-24] MEDS: DOXYCYCLINE 100 MG TAB/CAP PO SCH (10:05)
[2022-11-24] MEDS: LOSARTAN POTASSIUM 50 MG TAB PO SCH (10:05)
[2022-11-24 13:00] VITALS: BP 122/74
[2022-11-24] MEDS ORDERED: HYDR-4902 PO (14:48)
[2022-11-24 17:00] VITALS: BP 110/54
[2022-11-24 18:00] VITALS: BP 100/64
== END 2022-11-24 16:30 | disposition home or self-care (01) | DRG 177 ==
LOC: ER 05:55 → TELE 12:46 → TELE-WESTW 11-21 15:47
PROVIDERS: ADMIT Registered Nurse; ATTEND Internal Medicine Pulmonary Disease
PROC: 02WA3MZ Revision of Cardiac Lead in Heart, Percutaneous Approach (ICD-10-PCS; 2022-11-23)
PROC: 4B02XSZ Measurement of Cardiac Pacemaker, External Approach (ICD-10-PCS; principal; 2022-11-24)
DX: T82.128A Displacement of other cardiac electronic device, initial encounter (principal); E66.01 Morbid (severe) obesity due to excess calories; R00.1 Bradycardia, unspecified; R42 Dizziness and giddiness; Z95.0 Presence of cardiac pacemaker; Z68.34 Body mass index [BMI] 34.0-34.9, adult; Z82.49 Family history of ischemic heart disease and other diseases of the circulatory system; Z83.3 Family history of diabetes mellitus; I10 Essential (primary) hypertension; Z98.51 Tubal ligation status
CPT/HCPCS: 33218; 36415; 71045; 80048; 80053; 83735; 83880; 84484; 85025; 85610; 85730; 93005; 99152; G0378; J2250; J3490

== ENCOUNTER → 2023-03-28 | Outpatient (CLI) | payer MEDICAID ==
[~2023-03-28] VITALS: Ht 154.9 cm; Wt 81.6 kg
[~2023-03-28] MED LIST changes: -DOXY-448 PO
== END | disposition home or self-care (01) ==
LOC: Rad HDHVI 13:57
PROVIDERS: ATTEND Internal Medicine Cardiovascular Disease
DX: I44.2 Atrioventricular block, complete (principal); I10 Essential (primary) hypertension; R55 Syncope and collapse; E78.5 Hyperlipidemia, unspecified; Z82.49 Family history of ischemic heart disease and other diseases of the circulatory system; Z95.0 Presence of cardiac pacemaker
CPT/HCPCS: 78452; 93017; 96374; A9500

== ENCOUNTER 2024-04-29 22:47 | Emergency (ER) | payer SELFPAY ==
[~2024-04-29] VITALS: Ht 154.9 cm; Wt 78.2 kg
[~2024-04-29 22:47] MED LIST changes: +LOSA-535 PO; -LOSA100T58 PO
[2024-04-29 23:02] VITALS: BP 156/93; PULSE 65; RESP 16; O2SAT 99
== END 2024-04-29 23:20 | disposition left against medical advice (07) ==
LOC: ER 22:47
DX: I10 Essential (primary) hypertension (principal); Z53.21 Procedure and treatment not carried out due to patient leaving prior to being seen by health care provider